=== PATIENT | female | born 1975 | race African-American/Black ===

== ENCOUNTER 2016-12-23 02:01 | Emergency (ER) | payer BC ==
[~2016-12-23] VITALS: Ht 162.6 cm; Wt 100.1 kg
[~2016-12-23 02:01] MED LIST: ATARAX,VISTARIL25 MG PO; CLEOCIN300 MG PO; COMBIGAN O20 DROP/5 BOTH EYES; NAPROSYN500 MG PO; ZOFRAN4 MG PO; [UNRECOGNIZED DRUG - OTHER] BOTH EYES
[2016-12-23 03:06] VITALS: BP 135/88
== END 2016-12-23 03:07 | disposition home or self-care (01) ==
LOC: EME 02:01
DX: F43.20 Adjustment disorder, unspecified (principal); F43.0 Acute stress reaction; Z04.6 Encounter for general psychiatric examination, requested by authority; H40.9 Unspecified glaucoma
CPT/HCPCS: 80053; 81003; 85027; 90837; 99281; 99284; G0480